=== PATIENT | male | born 1960 | race Hispanic/Latino ===

== ENCOUNTER 2018-03-21 06:51 | Emergency (ER) | payer BC, OTHER ==
--- NOTE | 2018-03-21 08:29 | Emergency Department Report ---
HPI - General Chief Complaint: Back Pain/Injury Time Seen by Provider: 03/21/18 07:53 - HPI HPI: This is a 57-year-old male with a history of blood pressure controlled and medication who presents to the ED complaining of lower left-sided back pain for the past 3 days. Patient states the pain was worsened yesterday after he was lifting some heavy water heater. Patient states today the pain is tolerable but sometimes does not. She denies any recent injuries, trauma or falls. He denies dysuria, frequency or abdominal pain ED Past Medical Hx - Past Medical History Hx Hypertension: Yes Hx Diabetes: Yes - Surgical History Past Surgical History?: Yes Additional Surgical History: EAR / T&A - Social History Smoking Status: Current Every Day Smoker Substance Use Type: Alcohol - Medications Home Medications: Home Medications Medication Instructions Recorded Confirmed Last Taken Type traMADol [Ultram] 50 mg PO Q6HR PRN #20 tablet 12/07/15 Unknown Rx Cyclobenzaprine [Flexeril] 10 mg PO QHS PRN #20 tablet 03/21/18 Unknown Rx Meloxicam [Mobic] 7.5 mg PO BID #20 tablet 03/21/18 Unknown Rx ED Review of Systems ROS: Stated complaint: BACK PAIN Other details as noted in HPI Comment: All other systems reviewed and negative Physical Exam - Physical Exam Vital Signs: Vital Signs 03/21/18 07:08 Temperature 98.1 F Pulse Rate 102 H Respiratory 20 Rate Blood Pressure 164/92 O2 Sat by Pulse 96 Oximetry Physical Exam: GENERAL: Alert and oriented x3, no apparent distress, Normal Gait, atraumatic. HEAD: Head is normocephalic and a-traumatic. LUNGS: Symetrical with respiration, No wheezing, no rales or crackles, CTAB. HEART: S1, S2 present, regular rate and rhythm without murmur, no rubs, no gallops. Non tender to palpation BACK: Full range of motion, no spinal tenderness, Tenderness to palpation of latissimus dorsi muscles of the back NEUROLOGIC: The patient is cooperative with no focal neurologic deficits. SKIN: Warm and dry, No lesions, No ulceration or induration present. ED Course Vital Signs 03/21/18 07:08 Temperature 98.1 F Pulse Rate 102 H Respiratory 20 Rate Blood Pressure 164/92 O2 Sat by Pulse 96 Oximetry ED Medical Decision Making - Medical Decision Making 57-year-old male presents to ED with lower back pain ED course: Patient received in ED. Vital signs are normal patient is in no acute distress. Discussed follow-up with her orthopedic Dr. Octavio Discussed with patient follow-up with primary care physician. Discussed the patient and take medications as prescribed. Patient has no neurological deficit. Patient is alert and oriented 3 and understands all instructions given. Discussed drowsiness effect of Flexeril makes her drowsy and not to operate machinery while taking flexeril Critical care attestation.: If time is entered above; I have spent that time in minutes in the direct care of this critically ill patient, excluding procedure time. ED Disposition Clinical Impression: Low back pain, Lumbar radiculopathy Disposition: TO HOME OR SELFCARE Is pt being admited?: No Does the pt Need Aspirin: No Condition: Stable Instructions: Low Back Strain (ED), Lumbar Radiculopathy (ED) Additional Instructions: Make sure to follow up with the primary care physician as discussed. Take all your medications as you've been prescribed. If you have any worsening symptoms or develop new symptoms please return to ED immediately. Prescriptions: Cyclobenzaprine [Flexeril] 10 mg PO QHS PRN #20 tablet PRN Reason: Muscle Spasm Meloxicam [Mobic] 7.5 mg PO BID #20 tablet Referrals: KJ PARK MD [Primary Care Provider] - 3-5 Days RADHAMES ORELLANA MD [Staff Physician] - 3-5 Days Forms: Work/School Release Form(ED) Time of Disposition: 08:33
== END 2018-03-21 08:39 | disposition home or self-care (01) ==
LOC: ED 06:51
CPT/HCPCS: 99282